=== PATIENT | male | born 1980 | race Caucasian/White ===

== ENCOUNTER 2016-10-18 08:03 | Emergency (ER) | payer OTHER ==
[2016-10-18 08:13] VITALS: BP 107/81; PULSE 88; TEMP 98.2; BMI 28.6
--- NOTE | 2016-10-18 08:24 | PDOC ---
History of Present Illness - General Chief Complaint: Pain Stated Complaint: LT LEG PAIN Time Seen by Provider: 10/18/16 08:15 History Source: Patient - History of Present Illness Occurred: reports: yesterday Severity: Yes: moderate Lower Extremity Pain Location: left: ankle Method of Injury: Yes: twisted Past History - Past Medical History Allergies/Adverse Reactions: Allergies Allergy/AdvReac Type Severity Reaction Status Date / Time No Known Allergies Allergy Verified 10/18/16 08:09 Home Medications: Ambulatory Orders NK [No Known Home Medication] 10/18/16 Other medical history: none - Psycho/Social/Smoking Cessation Hx Anxiety: No Suicidal Ideation: No Smoking History: Never smoked Have you smoked in the past 12 months: Yes Number of Cigarettes Smoked Daily: 1 Information on smoking cessation initiated: Yes Hx Alcohol Use: No Drug/Substance Use Hx: No Substance Use Type: None Review of Systems - Review of Systems Musculoskeletal: Yes: Joint Pain, Joint Swelling *Physical Exam - Vital Signs Last Vital Signs Temp Pulse Resp BP Pulse Ox 98.2 F 88 18 107/81 100 10/18/16 08:10 10/18/16 08:10 10/18/16 08:10 10/18/16 08:10 10/18/16 08:10 - Physical Exam General Appearance: Yes: Appropriately Dressed, Apparent Distress Neck: positive: Supple Respiratory/Chest: negative: Respiratory Distress Extremity: positive: Tender, Swelling Integumentary: positive: Dry, Warm Neurologic: positive: Fully Oriented, Alert, Normal Mood/Affect Medical Decision Making - Medical Decision Making 10/18/16 08:24 36 yo male, p/w L ankle injury. Patient states while playing soccer yesterday, twisted his left ankle and complaining of pain and swelling to site since. Unable to bear weight this a.m. Has not taking anything for pain. Patient in mild distress, with moderate swelling to medial malleolus of left ankle. R/o fracture. Pain control in ED 10/18/16 08:32 10/18/16 09:16 XR neg for fx. TATYANA placed and pt discharged with crutches and instructed to take motrin as needed 10/18/16 09:18 *DC/Admit/Observation/Transfer Diagnosis at time of Disposition: Ankle sprain Qualifiers: Encounter type: initial encounter Involved ligament of ankle: unspecified ligament Laterality: left Qualified Code(s): S93.402A - Sprain of unspecified ligament of left ankle, initial encounter - Discharge Dispostion Disposition: HOME Condition at time of disposition: Improved - Referrals Referrals: Kaleigh Pepper MD [Primary Care Provider] - Tee Spencer MD [Staff Physician] - - Patient Instructions Printed Discharge Instructions: Ankle Sprain Additional Instructions: Please follow with orthopedics if pain persists after 2 weeks
[2016-10-18] MEDS ORDERED: MAG HYDROX/AL HYDROX/SIMETH 30 ML UNIT-DOSE CUP PO ONE (08:31)
[2016-10-18] MEDS ORDERED: IBUPROFEN 400 MG TABLET (FP) PO ONE ×2 (08:31→08:33)
[2016-10-18] MEDS ORDERED: MAG HYDROX/AL HYDROX/SIMETH 30 ML UNIT-DOSE CUP ONE (08:33)
== END 2016-10-18 09:25 | disposition home or self-care (01) ==
LOC: JERFT 08:03
DX: S93.402A Sprain of unspecified ligament of left ankle, initial encounter (principal); X50.1XXA Overexertion from prolonged static or awkward postures, initial encounter; Y93.66 Activity, soccer; Y92.322 Soccer field as the place of occurrence of the external cause; Y99.8 Other external cause status
CPT/HCPCS: 73610-TC-LT; 73630-TC-LT; 99282-25